=== PATIENT | male | born 1970 | race Caucasian/White ===

== ENCOUNTER 2017-04-15 08:51 | Outpatient (CLI) | payer OTHER | END 2017-04-15 08:52 | disposition home or self-care (01) | LOC: CTENTCT 08:51 | PROVIDERS: ATTEND Specialist | DX: J32.9 Chronic sinusitis, unspecified (principal) | CPT/HCPCS: 70486 ==

== ENCOUNTER 2017-05-05 09:32 | Day surgery (SDC) | payer OTHER ==
[2017-05-04 15:00] VITALS: BMI 23.1
[2017-05-05] MEDS ORDERED: Morphine 10 MG/ML VIAL ONE (10:28)
[2017-05-05] MEDS ORDERED: Fentanyl 100 MCG/2 ML VIAL ONE (10:28)
[2017-05-05] MEDS ORDERED: Bacitracin Zinc Ointment 30 gm TUBE ONE (10:30)
[2017-05-05] MEDS ORDERED: Lidocaine 1% w/Epinephrine 1:200K 30 ML VIAL ONE (10:30)
[2017-05-05] MEDS ORDERED: Lidocaine 4% Topical Sol 50 ML BOT ONE (10:33)
[2017-05-05] MEDS ORDERED: Oxymetazoline HCl 0.05% ( 15 ML ) ONE ×2 (10:48→11:18)
[2017-05-05] MEDS ORDERED: methylPREDNISolone Acetate 40 mg/ml Vial ONE (11:06)
--- NOTE | 2017-05-05 13:56 | OP ---
PREOPERATIVE DIAGNOSES: Deviated septum, chronic sinusitis, septal spur, hypertrophic inferior turbi nates, facial pain, and sleep disorder breathing. POSTOPERATIVE DIAGNOSES: Deviated septum, chronic sinusitis, septal spur, hypertrophic inferior turb inates, facial pain, and sleep disorder breathing. PROCEDURES PERFORMED: 1. Bilateral nasal endoscopy with maxillary antrostomy. 2. Bilateral nasal endoscopy with total ethmoidectomy. 3. Bilateral nasal endoscopy with frontal sinusotomy. 4. Bilateral nasal endoscopy with sphenoidotomy. 5. Septoplasty. 6. Bilateral nasal endoscopy with submucosal resection of inferior turbinates. PROCEDURE IN DETAIL: After consent was obtained, the patient was identified, brought to the operatin g room, and placed on the operating room table in the supine position. Consent was obtained, notifyi ng the patient of the possibility of additional infections, bleeding, brain injury, and eye/orbital i njury. The patient was placed on the operating room table, and general endotracheal anesthesia and intravenous access was obtained. The patient was then positioned, prepped and draped for endoscopic sinus surgery. Nasal preparation included trimming nasal vestibular hairs and spraying in topical Af rin. We then placed Afrin topical solution on nasal pledgets and strategically located them intranas ally. The perinasal mucosa was injected with 1% lidocaine with 1:100,000 epinephrine in the submucop erichondrial plane of the septum, lateral nasal wall, and anterior to the uncinate. The patient was then prepped and draped in a sterile fashion and positioned for endoscopic sinus surgery. Maxillary Antrostomy: The uncinate was then identified and the extent of the uncinate was appreciate d by out-fracturing the uncinate with the ball-tip probe. We then used the sickle blade to disarticu late the uncinate from the lateral nasal wall. This was then removed with straight biting and upbiti ng punches with the remaining shrouds of mucosa and bony septum removed with the micro-debrider. The natural os of the maxillary sinus was then identified and enlarged with the maxillary punches and ba ck biting forceps. Total Ethmoidectomy: The anterior face of the ethmoid bulla was entered and with the micro-debrider, dissection continued posteriorly to the ground lamella. The limits of dissection included the inser tion of the middle turbinate, medial orbital wall, and base of skull. We similarly identified the fr ontal recess and removed shrouds of bone and debris in that region to obtain patency into the agger n asi region and frontal recess. We then entered the ground lamella and its anteroinferior aspect and proceeded posteriorly, opening the posterior ethmoid air-cell system. Again, the limits of dissectio n included the base of skull and medial orbital wall. Frontal Sinus Surgery: With the 0-degree endoscope, the patient underwent systematic nasal endoscopy . There were no suspicious internasal masses or lesions identified. We then focused our attention t o the osteomeatal complex region under the middle turbinate. Sphenoidotomy: The anterior face of the sphenoid was identified and entered in its extreme anteroinf erior aspect. A sphenoid punch was then used to enlarge the sphenoidotomy and no injury to the optic nerve or internal carotid artery occurred. Septoplasty: After local anesthesia was infiltrated into the submucoperichondrial plane, a standard [place] incision was made with a #15 blade down to the level of the septal cartilage. The caudal jovon vator was used to elevate the mucoperichondrium from the underlying cartilage. We then proceeded bey ond the bony cartilaginous junction and elevated the bony periosteum as well. Great attention was pa id to the spur to prevent rent formation in the septal flap. A transcartilaginous incision was then m mars, while preserving an adequate dorsal and caudal cartilaginous strut for tip support. The deforme d cartilage was removed and disarticulated from the bony cartilaginous junction and maxillary crest. This was placed in saline and would later be crushed and returned to the mucoperichondrial envelope. We then elevated the contralateral periosteum from the bony cartilaginous region and removed the de formed portions of the bone and bony spurs. The cartilage was then crushed and placed back into the mucoperichondrial envelope and the mucosa was re-approximated with a quilting stitch composed of rapi dly absorbent gut suture. The [place] incision was also closed with interrupted gut suture. At the completion of the case, Linder splints were placed and suture secured to the caudal septum. At the completion of the case, Rice keel splints were placed in the ethmoid cavities after the ethmoi dectomy. There were no complications. The patient tolerated the procedure well and was discharged t o the recovery room in stable condition prior to return to the preoperative Day Stay with [facility]. Prescriptions for pain medication and antibiotics were provided. The patient received intramuscular Depo-Medrol during the case.
--- NOTE | 2017-05-05 21:55 | EKG ---
Test Reason : PREOP Blood Pressure : / mmHG Vent. Rate : 060 BPM Atrial Rate : 060 BPM P-R Int : 144 ms QRS Dur : 102 ms QT Int : 380 ms P-R-T Axes : 064 073 019 degrees QTc Int : 380 ms Normal sinus rhythm Normal ECG No previous ECGs available Confirmed by JACKELYN REYES ([id number]) on 05/05/2017 9:55:28 PM Referred By: ANGELO Confirmed By:JACKELYN REYES
== END 2017-05-05 13:55 | disposition home or self-care (01) ==
LOC: SDC 09:32
PROVIDERS: ATTEND Specialist
PROC: 09BM0ZZ Excision of Nasal Septum, Open Approach (ICD-10-PCS; principal; 2017-05-05)
PROC: 099X8ZZ Drainage of Left Sphenoid Sinus, Via Natural or Artificial Opening Endoscopic (ICD-10-PCS; principal; 2017-05-05)
PROC: 09TV8ZZ Resection of Left Ethmoid Sinus, Via Natural or Artificial Opening Endoscopic (ICD-10-PCS; principal; 2017-05-05)
PROC: 099Q8ZZ Drainage of Right Maxillary Sinus, Via Natural or Artificial Opening Endoscopic (ICD-10-PCS; principal; 2017-05-05)
PROC: 09TL8ZZ Resection of Nasal Turbinate, Via Natural or Artificial Opening Endoscopic (ICD-10-PCS; principal; 2017-05-05)
PROC: 09TU8ZZ Resection of Right Ethmoid Sinus, Via Natural or Artificial Opening Endoscopic (ICD-10-PCS; principal; 2017-05-05)
PROC: 099R8ZZ Drainage of Left Maxillary Sinus, Via Natural or Artificial Opening Endoscopic (ICD-10-PCS; principal; 2017-05-05)
PROC: 099W8ZZ Drainage of Right Sphenoid Sinus, Via Natural or Artificial Opening Endoscopic (ICD-10-PCS; principal; 2017-05-05)
DX: J34.2 Deviated nasal septum (principal); J32.9 Chronic sinusitis, unspecified; J34.89 Other specified disorders of nose and nasal sinuses; J34.3 Hypertrophy of nasal turbinates; G47.30 Sleep apnea, unspecified; Z79.899 Other long term (current) drug therapy; Z98.52 Vasectomy status; Z98.890 Other specified postprocedural states
CPT/HCPCS: 93005; 93010; J1030; J2001; J2270; J3010

== ENCOUNTER 2018-03-08 20:30 | Outpatient (CLI) | payer OTHER | END 2018-03-08 20:31 | disposition home or self-care (01) | LOC: SLEEPLAB 20:30 | PROVIDERS: ATTEND Otolaryngology Plastic Surgery within the Head & Neck | DX: G47.9 Sleep disorder, unspecified (principal); G47.33 Obstructive sleep apnea (adult) (pediatric); R06.83 Snoring; Z68.23 Body mass index [BMI] 23.0-23.9, adult | CPT/HCPCS: 95810 ==

== ENCOUNTER 2018-03-14 20:30 | Outpatient (CLI) | payer OTHER | END 2018-03-14 20:31 | disposition home or self-care (01) | LOC: SLEEPLAB 20:30 | PROVIDERS: ATTEND Otolaryngology Plastic Surgery within the Head & Neck | DX: G47.9 Sleep disorder, unspecified (principal); R06.83 Snoring; G47.33 Obstructive sleep apnea (adult) (pediatric) | CPT/HCPCS: 95811 ==

== ENCOUNTER 2021-02-06 11:48 | Outpatient (CLI) | payer BC ==
[2021-02-07 14:28] LABS: SARS-CoV-2 PCR by NAA Not Detected (NotDetected)
== END 2021-02-06 11:49 | disposition home or self-care (01) ==
LOC: LABBT 11:48
PROVIDERS: ATTEND Otolaryngology Plastic Surgery within the Head & Neck
DX: Z01.818 Encounter for other preprocedural examination (principal); J34.2 Deviated nasal septum; J34.89 Other specified disorders of nose and nasal sinuses; R44.8 Other symptoms and signs involving general sensations and perceptions; J34.3 Hypertrophy of nasal turbinates; R06.83 Snoring; G47.9 Sleep disorder, unspecified; Z20.822 Contact with and (suspected) exposure to COVID-19
CPT/HCPCS: 93005; 93010; U0003; U0005

== ENCOUNTER 2021-02-11 08:52 | Day surgery (SDC) | payer BC ==
[2021-02-10 10:28] VITALS: BMI 23.1
[2021-02-11] MEDS ORDERED: Oxymetazoline HCl 0.05% (30 ML BOT) ONE (09:26)
[2021-02-11] MEDS ORDERED: Lidocaine 1% w/Epinephrine 1:100K 20 ML VIAL ONE (09:55)
[2021-02-11] MEDS ORDERED: AFRIN NASAL MIST 15 ML BOT ONE (09:55)
[2021-02-11] MEDS ORDERED: Fentanyl 100 MCG/2 ML VIAL ONE ×3 (09:56→12:44)
[2021-02-11] MEDS ORDERED: Midazolam HCl 2 mg/2 ml Vial ONE (10:23)
[2021-02-11] MEDS ORDERED: Dexamethasone 20 MG/5 ML VIAL ONE (10:24)
[2021-02-11] MEDS ORDERED: Glycopyrrolate 0.2 MG/ML 5 ML SYRINGE ONE (10:24)
[2021-02-11] MEDS ORDERED: PROPOFOL 200 MG/20 ML VIAL ONE (10:24)
[2021-02-11] MEDS ORDERED: PHENYLEPHRINE-NS 100 MCG/ML 10 ML SYRINGE ONE (10:24)
[2021-02-11] MEDS ORDERED: Rocuronium Bromide 10 MG/ML (10ML VIAL) ONE (10:24)
[2021-02-11] MEDS ORDERED: Ondansetron PF 4 MG/2 ML Vial ONE (10:24)
[2021-02-11] MEDS ORDERED: methylPREDNISolone Acetate 40 mg/ml Vial ONE (11:11)
== END 2021-02-11 14:05 | disposition home or self-care (01) ==
LOC: SDC 08:52
PROVIDERS: ATTEND Otolaryngology Plastic Surgery within the Head & Neck
PROC: 09TL0ZZ Resection of Nasal Turbinate, Open Approach (ICD-10-PCS; principal; 2021-02-11)
PROC: 09SM0ZZ Reposition Nasal Septum, Open Approach (ICD-10-PCS; principal; 2021-02-11)
PROC: 09QK0ZZ Repair Nasal Mucosa and Soft Tissue, Open Approach (ICD-10-PCS; principal; 2021-02-11)
DX: J34.2 Deviated nasal septum (principal); J34.3 Hypertrophy of nasal turbinates; J34.89 Other specified disorders of nose and nasal sinuses; G47.9 Sleep disorder, unspecified
CPT/HCPCS: C1889; J1100; J2250; J2405; J2704; J2920; J3010